=== PATIENT | male | born 1960 | race Two or more races ===

== ENCOUNTER 2018-02-25 01:47 | Emergency (ER) | payer BC ==
[~2018-02-25] VITALS: Ht 180.3 cm; Wt 86.5 kg
[2018-02-25 02:21] LABS: BASOPHILS # (AUTO) 0.03 x10^3/uL (0-0.1); BASOPHILS % (AUTO) 0 % (0-1); EOSINOPHILS # (AUTO) 0.13 x10^3/uL (0-0.4); EOSINOPHILS % (AUTO) 2 % (1-7); LYMPHOCYTES # (AUTO) 3.07 x10^3/uL (1-3.4); LYMPHOCYTES % (AUTO) 33 % (22-44); MD NO; MEAN CORPUSCULAR HEMOGLOBIN 31.4 pg (27.5-34.5); MEAN CORPUSCULAR HGB CONC 33.6 g/dL (33.2-36.2); MEAN CORPUSCULAR VOLUME 93.3 fL (81-97); MEAN PLATELET VOLUME 7.4 fL (7.4-10.4); MONOCYTES # (AUTO) 0.72 x10^3/uL (0.2-0.8); MONOCYTES % (AUTO) 8 % (2-9); NEUTROPHILS # (AUTO) 5.25 x10^3/uL (1.8-6.8); NEUTROPHILS % (AUTO) 57 % (42-75); PLATELET COUNT 231 x10^3/uL (130-400); RED BLOOD COUNT 4.78 x10^6/uL (4.38-5.82); RED CELL DISTRIBUTION WIDTH 13.7 % (9.4-14.8)
[2018-02-25] MEDS ORDERED: ASPIRIN 81 MG TABLET CHEW ONE (02:24)
[2018-02-25] MEDS ORDERED: NITROGLYCERIN 0.4 MG BOTTLE (25 TABS) SL PRN (02:30)
[2018-02-25] MEDS ORDERED: MORPHINE SULFATE 4 MG/ML, 1ML IVPush PRN (02:30)
[2018-02-25] MEDS ORDERED: SODIUM CHLORIDE FLUSH 10ML SYR IVF ONE (02:30)
[2018-02-25] MEDS ORDERED: ASPIRIN 81 MG TABLET CHEW PO ONE (02:30)
[2018-02-25 02:32] LABS: ALANINE AMINOTRANSFERASE 36 U/L (12-78); ALBUMIN 3.7 g/dL (3.4-5.0); ANION GAP 7 mmol/L (5-15); CALCIUM 8.9 mg/dL (8.5-10.1); CHLORIDE 107 mmol/L (98-107)
[2018-02-25] MEDS ORDERED: NITROGLYCERIN SINGLE TAB 0.4 MG SL ONE (02:33)
[2018-02-25 02:36] LABS: ALKALINE PHOSPHATASE 57 U/L (45-117); BILIRUBIN,TOTAL 0.2 mg/dL (0.2-1.0); CREATININE 0.94 mg/dL (0.7-1.3); TOTAL PROTEIN 6.7 g/dL (6.4-8.2); TROPONIN I < 0.015 ng/mL (0.000-0.045)
[2018-02-25] MEDS ORDERED: MORPHINE SULFATE 4 MG/ML, 1ML ONE (03:14)
[2018-02-25 03:52] VITALS: BP 108/66
== END 2018-02-25 03:54 | disposition left against medical advice (07) ==
LOC: ED 03:02
DX: R07.2 Precordial pain (principal); F17.200 Nicotine dependence, unspecified, uncomplicated
CPT/HCPCS: 36415; 71045; 80053; 83880; 84484; 85025; 85379; 93005; 96374

== ENCOUNTER 2020-09-18 12:45 | Emergency (ER) | payer BC ==
[~2020-09-18] VITALS: Ht 180.3 cm; Wt 91.0 kg
--- NOTE | 2020-09-18 13:06 | NUR ---
PATIENT ARRIVES WITH PAIN IN ABDOMEN FOR THREE WEEKS, SUBSIDED THEN CAME BACK TODAY. LOWER BELLY BILATERALLY. PATIENT STATES HE WENT FOR ULTRASOUND AT [facility] IN JUL AND SHOWED NOTHING. NO NAUSEA
[2020-09-18] MEDS ORDERED: MORPHINE SULFATE 4 MG/ML, 1ML ONE (13:16)
[2020-09-18] MEDS ORDERED: ONDANSETRON 2MG/ML, 2ML ONE (13:16)
[2020-09-18] MEDS: MORPHINE SULFATE 4 MG/ML, 1ML IVPush PRN ×2 (13:22→13:23)
[2020-09-18] MEDS ORDERED: ONDANSETRON 2MG/ML, 2ML IVPush ONE (13:30)
[2020-09-18 13:48] LABS: BASOPHILS % (AUTO) 1 % (0-1); EOSINOPHILS % (AUTO) 1 % (1-7); LYMPHOCYTES % (AUTO) 25 % (22-44); MEAN CORPUSCULAR HEMOGLOBIN 32.4 pg (27.5-34.5); MEAN CORPUSCULAR HGB CONC 34.2 g/dL (33.2-36.2); MEAN PLATELET VOLUME 8.1 fL (7.4-10.4); MONOCYTES % (AUTO) 7 % (2-9); NEUTROPHILS % (AUTO) 66 % (42-75); PLATELET COUNT 210 x10^3/uL (130-400); RED BLOOD COUNT 4.49 x10^6/uL (4.38-5.82); RED CELL DISTRIBUTION WIDTH 13.5 % (9.4-14.8)
[2020-09-18 13:50] LABS: MICROSCOPIC INDICATED
[2020-09-18 13:53] LABS: ALANINE AMINOTRANSFERASE 63 U/L (12-78); ALBUMIN 3.8 g/dL (3.4-5.0); ANION GAP 6 mmol/L (5-15); CALCIUM 8.7 mg/dL (8.5-10.1); CHLORIDE 109 mmol/L (98-107); CREATININE 0.98 mg/dL (0.7-1.3)
[2020-09-18 13:54] LABS: MD NO
[2020-09-18 13:55] LABS: ALKALINE PHOSPHATASE 58 U/L (45-117); BILIRUBIN,TOTAL 0.5 mg/dL (0.2-1.0); TOTAL PROTEIN 7.1 g/dL (6.4-8.2)
--- NOTE | 2020-09-18 14:09 | NUR ---
US WAS WITH PATIENT
[2020-09-18] MEDS ORDERED: OMNIPAQUE 350 MG/ML, 100ML BOTTLE ONE (14:45)
--- NOTE | 2020-09-18 16:46 | NUR ---
surgery has been consulted. patient patiently waiting outcome and recommendations. on montior rails up
[2020-09-18 17:08] VITALS: BP 132/78
--- NOTE | 2020-09-18 17:10 | NUR ---
patient discharge reviewed. patient feeling improved.
== END 2020-09-18 17:23 | disposition home or self-care (01) ==
LOC: ED 13:36
DX: K40.90 Unilateral inguinal hernia, without obstruction or gangrene, not specified as recurrent (principal); R10.32 Left lower quadrant pain; R10.30 Lower abdominal pain, unspecified; Z87.891 Personal history of nicotine dependence
CPT/HCPCS: 36415; 74177; 76870; 80053; 81001; 85025; 87491; 87591; 96374; 96375; 99285; J2270; J2405; Q9967

== ENCOUNTER 2020-09-19 10:30 | Emergency (ER) | payer BC ==
[~2020-09-19] VITALS: Ht 180.3 cm; Wt 91.9 kg
[2020-09-19 10:31] VITALS: BP 122/83
[2020-09-19] MEDS ORDERED: ONDANSETRON ODT 4 MG PO ONE (11:00)
[2020-09-19] MEDS ORDERED: OXYcodone/APAP 5/325MG TABLET PO ONE (11:00)
[2020-09-19] MEDS ORDERED: OXYcodone/APAP 5/325MG TABLET ONE (11:15)
[2020-09-19] MEDS ORDERED: ONDANSETRON ODT 4 MG ONE (11:15)
--- NOTE | 2020-09-19 11:23 | NUR ---
Patient given verbal discharge instructions, refused updated VS, they have confirmed that they understand the instructions. Patient eloped after PO pain med given, ambulatory with steady gait.
== END 2020-09-19 11:32 | disposition left against medical advice (07) ==
LOC: ED 11:26
DX: K40.90 Unilateral inguinal hernia, without obstruction or gangrene, not specified as recurrent (principal); R10.32 Left lower quadrant pain; R10.31 Right lower quadrant pain
CPT/HCPCS: 99283

== ENCOUNTER 2020-11-13 11:10 | Emergency (ER) | payer BC ==
[~2020-11-13] VITALS: Ht 180.3 cm; Wt 92.6 kg
[2020-11-13] MEDS ORDERED: SODIUM CHLORIDE FLUSH 10ML SYR IVF ONE (11:30)
[2020-11-13] MEDS ORDERED: ONDANSETRON 2MG/ML, 2ML IVPush ONE (11:30)
--- NOTE | 2020-11-13 11:30 | NUR ---
PA at bedside for exam. farmer and grazier followed and IV started for pain meds with labs drawn and sent with clinical lab assistant. Pt aware of need for UA sample with urinal left at bedside and call light in reach.
[2020-11-13] MEDS ORDERED: ONDANSETRON 2MG/ML, 2ML ONE (11:36)
[2020-11-13] MEDS ORDERED: MORPHINE SULFATE 4 MG/ML, 1ML ONE ×2 (11:36→13:27)
[2020-11-13 11:40] LABS: BASOPHILS % (AUTO) 1 % (0-1); EOSINOPHILS % (AUTO) 1 % (1-7); LYMPHOCYTES % (AUTO) 31 % (22-44); MEAN CORPUSCULAR HGB CONC 34.1 g/dL (33.2-36.2); MEAN PLATELET VOLUME 7.5 fL (7.4-10.4); MONOCYTES % (AUTO) 7 % (2-9); NEUTROPHILS % (AUTO) 61 % (42-75); PLATELET COUNT 210 x10^3/uL (130-400); RED BLOOD COUNT 4.47 x10^6/uL (4.38-5.82); RED CELL DISTRIBUTION WIDTH 12.7 % (9.4-14.8)
[2020-11-13] MEDS: MORPHINE SULFATE 4 MG/ML, 1ML IVPush PRN ×2 (11:40→13:30)
--- NOTE | 2020-11-13 11:40 | NUR ---
Pt medicated as ordered.
[2020-11-13 11:43] LABS: MD NO
[2020-11-13] MEDS ORDERED: CELE100C PO (11:47)
[2020-11-13] MEDS ORDERED: MULT-658 PO (11:47)
[2020-11-13] MEDS ORDERED: OMEP-110 PO (11:47)
[2020-11-13 11:50] LABS: ALANINE AMINOTRANSFERASE 35 U/L (12-78); ALBUMIN 3.8 g/dL (3.4-5.0); ANION GAP 6 mmol/L (5-15); CALCIUM 8.7 mg/dL (8.5-10.1); CHLORIDE 107 mmol/L (98-107); CREATININE 0.94 mg/dL (0.7-1.3)
--- NOTE | 2020-11-13 11:59 | NUR ---
Pt states pain has already decreased from 8/10 to 4/10 with movement on reassessment after digital media designer.
[2020-11-13 12:03] LABS: ALKALINE PHOSPHATASE 54 U/L (45-117); BILIRUBIN,TOTAL 0.4 mg/dL (0.2-1.0); TOTAL PROTEIN 7.3 g/dL (6.4-8.2)
--- NOTE | 2020-11-13 12:46 | NUR ---
Pt reassessed and noted 350mL of dark yellow with pink tint present uop. UA sample sen tot lab now. Pain remains 4/10. Repeat dose allowed by order, offered but declined at this time. Pt instructed to call if he changes his mind on medication needs.
[2020-11-13 12:59] LABS: MICROSCOPIC AUTO
--- NOTE | 2020-11-13 13:28 | NUR ---
at bedside for reassessment. Pt with increased pain and remedicated at this time for second dose per pt request. Pain 03/04 now.
--- NOTE | 2020-11-13 13:34 | NUR ---
IV d/c'd and pt able to start getting dressed per MD.
[2020-11-13 13:36] VITALS: BP 130/84
== END 2020-11-13 14:34 | disposition home or self-care (01) ==
LOC: ED 11:26
DX: R10.30 Lower abdominal pain, unspecified (principal); Z87.891 Personal history of nicotine dependence
CPT/HCPCS: 36415; 80053; 81001; 85025; 96374; 96375; 96376; 99284; J2270; J2405